=== PATIENT | female | born 1950 | race African-American/Black ===

== ENCOUNTER 2017-02-12 09:15 | Emergency (ER) | payer MEDICARE ==
[2017-02-12 10:46] LABS: BASOPHIL % 0.5 % (0-2); PLATELET COUNT 310 x10^3mcL (130-400); RED CELL DISTRIBUTION WIDTH 14.1 % (11.5-14.5)
[2017-02-12 11:01] LABS: ALBUMIN 4.3 g/dL (3.4-5.0); BILIRUBIN TOTAL 0.6 mg/dL (0.20-1.00); CALCIUM 9.7 mg/dL (8.5-10.1); CARBON DIOXIDE 30.5 mmol/L (21-32)
[2017-02-12 11:03] LABS: POTASSIUM SERUM 2.8 mmol/L (3.5-5.1); TOTAL PROTEIN, SERUM 8.6 g/dL (6.4-8.2)
[2017-02-12 11:04] LABS: UA SPECIFIC GRAVITY 1.015 (1.005-1.035); microscopic required? YES; urine erythrocyte 3+ (NEGATIVE)
[2017-02-12 15:17] VITALS: BP 159/94
== END 2017-02-12 15:17 | disposition short-term general hospital (02) ==
LOC: ED 09:15
PROVIDERS: Emergency Medicine Emergency Medical Services
DX: K57.90 Diverticulosis of intestine, part unspecified, without perforation or abscess without bleeding (principal); E87.6 Hypokalemia; E78.00 Pure hypercholesterolemia, unspecified; I10 Essential (primary) hypertension
CPT/HCPCS: J2270; J2405; J3480; Q9967